=== PATIENT | female | born 1985 | race Caucasian/White ===

== ENCOUNTER 2019-10-25 10:21 | Emergency (ER) | payer OTHER ==
[~2019-10-25] VITALS: Ht 167.6 cm; Wt 63.5 kg
[2019-10-25] MEDS ORDERED: IMITREX25 MG PO (10:45)
== END 2019-10-25 12:00 | disposition home or self-care (01) ==
LOC: ER 10:21
DX: S93.402A Sprain of unspecified ligament of left ankle, initial encounter (principal); X58.XXXA Exposure to other specified factors, initial encounter
CPT/HCPCS: 29515; 73610; 99283-25; L1906